=== PATIENT | male | born 1960 | race Hispanic/Latino ===

== ENCOUNTER 2017-09-27 07:41 | Observation (INO) | payer OTHER ==
[~2017-09-27] VITALS: Ht 175.3 cm; Wt 116.4 kg
[~2017-09-27 07:41] MED LIST: ASPIRIN81 M4 PO; ATORVASTATIN CA40 M1 PO; ATORVASTATIN CA80 M1 PO; BRILINTA90 M1 PO; FENOFIBRATE145 M1 PO; FLEXERIL10 MG PO; HEPARIN-1/25000 UNI1 IV; HUMALOG KW100 UNIT/1 SC; JANUMET 50-5001 EACH PO; LEVEMIR FL100 UNIT/1 SC; LISINOPRIL20 M1 PO; MECLIZINE HCL25 MG PO; MEDROL DOSEPAK1 PAC PO; METFORMIN1000 MG PO; METOPROLOL SUCC25 M1 PO; METOPROLOL TART25 M1 PO; MOTRIN 600 MG600 MG PO; NAPROXEN500 M1 PO; PERCOCET 325 MG1 TA2 PO
--- NOTE | 2017-09-27 08:19 | ED CARDIAC/CP/PALPITATIONS ---
History of Present Illness General Chief Complaint: Chest Pain Stated Complaint: CHEST PAIN Source: patient Exam Limitations: no limitations Vital Signs & Intake/Output Vital Signs & Intake/Output Vital Signs Date Time Temp Pulse Resp B/P B/P Pulse O2 O2 Flow FiO2 Mean Ox Delivery Rate 09/28 0939 79 110/82 09/28 0938 79 110/82 09/28 0633 98.2 79 19 110/82 95 09/27 2207 98.4 71 19 144/96 96 09/27 1920 98.5 68 15 154/90 96 09/27 1815 98.0 73 19 152/76 98 Room Air 09/27 1508 68 17 117/70 95 Room Air 09/27 1037 96.0 68 16 122/78 97 Room Air ED Intake and Output 09/28 0000 09/27 1200 Intake Total 440 0 Output Total 0 Balance 440 0 Intake, Oral 440 0 Output, Urine 0 Patient 257 lb 265 lb Weight Weight Reported by Patient Measurement Method Allergies Coded Allergies: NO KNOWN ALLERGIES (03/26/14) Reconcile Medications Aspirin (Aspirin*) 81 MG TAB.CHEW 1 TAB PO DAILY heart health (Reported) Atorvastatin Calcium 80 MG TABLET 1 TAB PO 1700 CHOLESTEROL (Reported) Fenofibrate Nanocrystallized (Fenofibrate) 145 MG TABLET 1 TAB PO DAILY CHOLESTEROL (Reported) Insulin Detemir (Levemir Flextouch) 100 UNIT/ML (3 ML) INSULN.PEN 43 UNITS SC QAM DM (Reported) Insulin Lispro (Humalog Kwikpen U-100) 100 UNIT/ML INSULN.PEN DM (Reported) Lisinopril 20 MG TABLET 1 TAB PO DAILY HTN (Reported) Metoprolol Succinate 25 MG TAB 1 TAB PO DAILY HEART (Reported) Ticagrelor (Brilinta) 90 MG TABLET 90 MG PO Q12H ACS Triage Note: PT TO ED FOR C/C OF INTERMITTENT SHARP CHEST PAINS THAT RADIATE INTO LEFT ARM WITH OCCASIONAL L ARM NUMBNESS X 2 DAYS. PT THINKS HE'S HAD A HEART ATTACK IN THE PAST BEFORE WITH CARDIAC CATH BUT IS UNSURE. UNSURE OF MEDICAL ILLUSTRATOR WELL, BUT REPORTS PART OF CLAIRE. ONLY SOB WHEN PAIN OCCURS. Triage Nurses Notes Reviewed? yes HPI: Patient presents for evaluation of chest pain that began abruptly about 3 days ago. Patient's describing an intermittent chest pain that occurs every few hours and lasts on the order of 10 minutes or so. He does refer associated left hand numbness and pain in the left shoulder. He states he occasionally gets diaphoretic and dyspneic but is unclear if this is associated with the chest pain episodes. He denies associated jaw pain. He has had a prior cardiac catheterization at [facility]. He is unable to tell me who his primary care physician is or his entry level manager. He is not sure about his cholesterol levels either. He does admit to mild cigarette smoking. Past History Travel History Traveled to [place] past 21 day No Medical History Any Pertinent Medical History? 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 No Review of Systems Review of Systems Constitutional: Reports: no symptoms. EENTM: Reports: no symptoms. Respiratory: Reports: no symptoms. Cardiovascular: Reports: see HPI. GI: Reports: no symptoms. Genitourinary: Reports: no symptoms. Musculoskeletal: Reports: no symptoms. Skin: Reports: no symptoms. Neurological/Psychological: Reports: no symptoms. Hematologic/Endocrine: Reports: no symptoms. Immunologic/Allergic: Reports: no symptoms. All Other Systems: Reviewed and Negative Physical Exam Physical Exam Cardiovascular: SEE BELOW Comments: Gen.: Well-nourished, well-developed, no acute respiratory distress. Head: Normocephalic, atraumatic. Eyes: Normal inspection bilaterally Ears: Normal inspection bilaterally Nose: Normal inspection Throat/mouth : Moist mucosa Neck: Supple, full range of motion, no goiter, no JVD Heart: Regular rate and rhythm, no murmurs rubs or gallops Lungs: Clear to auscultation bilaterally with normal air entry Chest: Nontender Back: Normal range of motion Abdomen: Soft, nontender, nondistended, normal bowel sounds Extremities: Normal range of motion grossly, equal radial pulses, no cyanosis clubbing or edema Neurologic: Cranial nerves grossly intact, speech is clear Skin: warm and dry Psychiatric: Calm, cooperative, no apparent delusions or hallucinations Core Measures ACS in differential dx? Yes CVA/TIA Diagnosis No Sepsis Present: No Sepsis Focused Exam Completed? No Progress Differential Diagnosis: AMI, musculoskeletal pain, pericarditis, pneumonia, pneumothorax, unstable angina Plan of Care: Orders Procedure Date/time Status CBC WITHOUT DIFFERENTIAL 09/28 599 Complete BASIC ELECTROLYTES PLUS BUN&CR 09/28 599 Complete Discharge Patient 09/28 UNK Active Heart Healthy Diet 09/27 D Active Weight 09/27 220 Active TROPONIN LEVEL 09/27 220 Complete EKG 09/27 2200 Active Vital Signs 09/27 192 Active Teach/Educate 09/28 1923 Active Pain Treatment and Response 09/28 1923 Active Nutritional Intake, Monitor 09/28 1923 Active Isolation 09/28 1923 Active Intake & Output 09/27 192 Active Patient Care Conference 09/28 1923 Active Activity/Ambulation 09/27 192 Active TROPONIN LEVEL 09/27 1600 Complete EKG 09/27 1600 Active Pathway - chart 09/27 1533 Active House Staff 09/27 1533 Active Patient Data 09/27 1533 Active Patient Data 09/[address] in observation 09/27 1201 Active Misc Message 09/27 1201 Active ED Holding Orders 09/27 1201 Active Vital Signs 09/27 1201 Active Code Status 09/27 1201 Active Intake & Output 09/27 0807 Active VTE Mechanical Prophylaxis 09/27 UNK Active Hemoccult 09/27 UNK Active FingerStick- Glucose 09/27 UNK Active CIWA 09/27 UNK Active Activity/Ambulation 09/27 UNK Active Current Medications Sig/Yazmin Start time Last Medication Dose Stop Time Status Admin Atorvastatin Calcium 80 MG 1700 09/27 1700 AC (Lipitor) Insulin Human Regular 0 TIDAC/HS 09/27 1700 AC 09/28 (NovoLIN R) 0936 Aspirin 81 MG DAILY 09/27 1534 AC 09/28 (Aspirin) 0938 Fenofibrate 145 MG DAILY 09/27 1534 AC 09/28 (Tricor) 0939 Lisinopril 20 MG DAILY 09/27 1534 AC 09/28 (Prinivil) 0938 Metoprolol Succinate 25 MG DAILY 09/27 1534 AC 09/28 (Toprol XL) 0939 Enoxaparin Sodium 40 MG DAILY 09/27 1533 AC 09/27 (Lovenox) 1607 Laboratory Tests 09/28/17 0616: Anion Gap 11, Estimated GFR > 60, BUN/Creatinine Ratio 14.0, CBC w Diff NO MAN DIFF REQ, RBC 5.19, MCV 87.0, MCH 28.5, MCHC 32.8 L, RDW 14.2, MPV 7.4, Gran % 49.4, Lymphocytes % 36.7, Monocytes % 10.1 H, Eosinophils % 3.3, Basophils % 0.5, Absolute Granulocytes 4.7, Absolute Lymphocytes 3.5 H, Absolute Monocytes 1.0 H, Absolute Eosinophils 0.3, Absolute Basophils 0 09/27/17 2200: Troponin I < 0.01 09/27/17 1630: Troponin I < 0.01 Diagnostic Imaging: Discussed w/RAD: Radiology Read. CXR Impression: PATIENT: TYRESE SHEA PRESENT AGE: 57 PATIENT ACCOUNT NO: [id number] : 56 LOCATION: [facility] ORDERING PHYSICIAN: Nahun Batista MD SERVICE DATE: 09/27/17 EXAM TYPE: RAD - XRY-CHEST XRAY, TWO VIEWS EXAMINATION: XR CHEST CLINICAL INFORMATION: Intermittent chest pain. COMPARISON: Chest done on 01/08/2016. TECHNIQUE: 2 views of the chest were obtained. FINDINGS: Both lung dias are symmetrically expanded and appear clear. The cardiomediastinal silhouette is within normal limit. There is no pleural effusion or pneumothorax present. The visualized upper abdomen is unremarkable. Mild multilevel degenerative spondylosis is seen in the spine. Overall, when compared to prior study dated 01/08/2016, there is no significant interval change present. IMPRESSION: No acute cardiopulmonary disease. DICTATED BY: Chau Thomas MD DATE/TIME DICTATED:09/27/17945 WORD PROCESSOR TECHNICIAN: KENYATTA DATE/TIME TRANSCRIBED:09/27/17945 CONFIDENTIAL, DO NOT COPY WITHOUT APPROPRIATE AUTHORIZATION. <Electronically signed in Other Vendor System> SIGNED BY: Chau Thomas MD 09/27/17 0951 Initial ED EKG: NSR, rate (70), RBBB, lafb Prior EKG: unchanged (rsr' in v2,v3-otherwise stable) Comments: 09/27/2017 10:39:25 AM patient's case discussed with Dr. Marks who reviewed the patient's old records. He had a drug-eluting stent placed in his LAD secondary to an 89% occlusion. At the time of the cardiac catheterization ( December 2015) there were no other significant lesions. However given the patient's risk factors an established history of coronary artery disease patient will be admitted for unstable angina. Given that the patient is pain-free currently and appears to be no need for anticoagulation at this time. Should the patient have a return of chest pain he would require anticoagulation. 09/27/2017 12:33:09 PM patient case discussed with Marily Rodas MD. Patient will be admitted to telemetry. Departure Departure Disposition: STILL A PATIENT Condition: Stable Clinical Impression Primary Impression: Unstable angina Referrals: Julissa Ferguson Departure Forms: Customer Survey General Discharge Information Observation Note Spoke With: Clark DALY,Marily Barcenas Place Patient In: Non-ED OBS Care Area Rationale for Observation: My rational for observation is as follows patient's clinical presentation is consistent with unstable angina. Patient has a known history of coronary artery disease and diabetes. He is at very high risk of myocardial infarction. I do not feel he is a good candidate for outpatient management given that he was unable to state who his entry level manager or primary care physician were. According to his entry level manager, Dr. Marks, he was seen only once in follow-up. I fear that this patient would not comply with outpatient treatment and could return in worse clinical condition. At this point I feel he requires continuous cardiac monitoring, serial EKGs and troponins and cardiology consultation for optimization of medical management and consideration of echocardiogram stress test and/or cardiac catheterization. Critical Care Note Critical Care Note Critical Care Time: non-applicable
[2017-09-27 09:01] LABS: ABSOLUTE BASOPHIL COUNT 0.1 /CUMM (0.0-0.2); ABSOLUTE EOSINOPHIL COUNT 0.3 /CUMM (0.0-0.7); ABSOLUTE GRANULOCYTE CT 6.8 /CUMM (1.4-6.5); ABSOLUTE LYMPH COUNT 2.4 /CUMM (1.2-3.4); ABSOLUTE MONOCYTE COUNT 0.8 /CUMM (0.10-0.60); BASOPHIL % 0.8 % (0.0-2.0); EOSINOPHIL % 2.5 % (0-5); GRANULOCYTE % 65.7 % (42.2-75.2); HEMATOCRIT 45.9 % (42-52); MEAN CORPUSCULAR HGB 28.6 PG (27.0-31.0); MEAN CORPUSCULAR HGB CONC 32.9 G/DL (33.0-37.0); MEAN CORPUSCULAR VOLUME 87.1 FL (80.0-94.0); MEAN PLATELET VOLUME 7.2 FL (7.4-10.4); PLATELET COUNT 282 /CUMM (130-400); RBC DISTRIBUTION WIDTH 13.9 % (11.5-14.5); RED BLOOD CELL CT 5.27 /CUMM (4.70-6.10); WHITE BLOOD CELL COUNT 10.3 /CUMM (4.8-10.8)
--- NOTE | 2017-09-27 09:56 | RADIOLOGY REPORT ---
EXAMINATION: XR CHEST CLINICAL INFORMATION: Intermittent chest pain. COMPARISON: Chest done on 01/08/2016. TECHNIQUE: 2 views of the chest were obtained. FINDINGS: Both lung dias are symmetrically expanded and appear clear. The cardiomediastinal silhouette is within normal limit. There is no pleural effusion or pneumothorax present. The visualized upper abdomen is unremarkable. Mild multilevel degenerative spondylosis is seen in the spine. Overall, when compared to prior study dated 01/08/2016, there is no significant interval change present. IMPRESSION: No acute cardiopulmonary disease.
--- NOTE | 2017-09-27 13:21 | Cons- Cardiology ---
General Information and HPI Consulting Request Date of Consult: 09/27/17 Requested By: Marily Rodas Reason for Consult: Chest pain, CAD History of Present Illness: The patient is a 57-year-old male with history of coronary artery disease status post drug-eluting stent placement to the LAD in 2016, type 2 diabetes mellitus, and hypertension who presents with complaint of chest discomfort. The chest discomfort has been intermittent over the past 3 days. He describes it as a sharp pain radiating from the substernal area to his left arm. Lasts for up to a few minutes per episode and occurs up to several times per day. He notes occasional shortness of breath associated with the pain. He also has occasional diaphoresis. No palpitations. No diaphoresis. No syncope. No lightheadedness or dizziness. No nausea or vomiting. He notes that the pain is improved with taking sips of water. Allergies/Medications Allergies: Coded Allergies: NO KNOWN ALLERGIES (03/26/14) Home Med List: Aspirin (Aspirin*) 81 MG TAB.CHEW 1 TAB PO DAILY heart health (Reported) Atorvastatin Calcium 80 MG TABLET 1 TAB PO 1700 CHOLESTEROL (Reported) Fenofibrate Nanocrystallized (Fenofibrate) 145 MG TABLET 1 TAB PO DAILY CHOLESTEROL (Reported) Insulin Detemir (Levemir Flextouch) 100 UNIT/ML (3 ML) INSULN.PEN 43 UNITS SC QAM DM (Reported) Insulin Lispro (Humalog Kwikpen U-100) 100 UNIT/ML INSULN.PEN DM (Reported) Lisinopril 20 MG TABLET 1 TAB PO DAILY HTN (Reported) Metoprolol Succinate 25 MG TAB 1 TAB PO DAILY HEART (Reported) Ticagrelor (Brilinta) 90 MG TABLET 90 MG PO Q12H ACS Current Medications: Current Medications Sig/Yazmin Start time Last Medication Dose Route Stop Time Status Admin Aspirin 0 .STK-MED ONE 09/27 1603 DC PO Aspirin 81 MG DAILY 09/27 1534 AC 09/27 PO 1607 Atorvastatin Calcium 80 MG 1700 09/27 1700 AC PO Enoxaparin Sodium 0 .STK-MED ONE 09/27 1603 DC SC Enoxaparin Sodium 40 MG DAILY 09/27 1533 AC 09/27 SC 1607 Fenofibrate 145 MG DAILY 09/27 1534 AC PO Insulin Human Regular 0 TIDAC/HS 09/27 1700 AC 09/27 SC 1622 Lisinopril 0 .STK-MED ONE 09/27 1603 DC PO Lisinopril 20 MG DAILY 09/27 1534 AC 09/27 PO 1607 Metoprolol Succinate 25 MG DAILY 09/27 1534 PO Nitroglycerin 0 .STK-MED ONE 09/27 0836 DC [facility] Nitroglycerin 0.5 GM ONCE ONE 09/27 0830 DC 09/27 TOP 09/27 08 0835 Review of Systems Review of Systems: No rash. No tremor. No fever. No chills. 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 spouse Services at Home: None Primary Language: Danish ETOH Use: occasional use Illicit Drug Use: denies illicit drug use Functional Ability ADLs Independent: dressing, eating, toileting, bathing. Ambulation: independent IADLs Independent: shopping, housework, finances, food prep, telephone, transportation , medication admin. Exam & Diagnostic Data Vital Signs and I&O Vital Signs Date Time Temp Pulse Resp B/P B/P Pulse O2 O2 Flow FiO2 Mean Ox Delivery Rate 09/27 1815 98.0 73 19 152/76 98 Room Air 09/27 1508 68 17 117/70 95 Room Air 09/27 1037 96.0 68 16 122/78 97 Room Air 09/27 0904 98.4 68 16 124/71 96 Room Air 09/27 0852 Room Air 09/27 0753 96.6 69 15 151/79 96 Room Air Room Air Intake & Output 09/27 1600 09/27 0800 09/27 0000 09/26 1600 09/26 0800 09/26 0000 Intake Total 0 Output Total 0 Balance 0 Intake, Oral 0 Output, Urine 0 Patient 265 lb Weight Weight Reported by Patient Measurement Method Physical Exam: Gen: The patient is in no acute distress HEENT: Normal nose, ears, and oropharynx. Pupils equal bilaterally. Conjunctiva normal. Neck: Supple with no JVD, no masses, and no thyromegaly Lungs: Clear to auscultation with normal respiratory effort Heart: RRR, S1, S2, no murmurs. No peripheral edema, 2+ pulses in the lower extremities bilaterally Abdomen: Soft, nontender, no masses. No hepatomegaly. No splenomegaly Extremities: No clubbing or cyanosis. Normal muscle strength in the upper and lower extremities. Skin: Normal skin turgor with no skin ulcers or lesions noted. Neuro: Cranial nerves intact. Sensation intact Psych: Alert and oriented 3 with appropriate affect Labs/Abdullahi Results: Laboratory Tests 09/27 09/27 1630 0845 Chemistry Sodium (137 - 145 mmol/L) 138 Potassium (3.5 - 5.1 mmol/L) 4.4 Chloride (98 - 107 mmol/L) 103 Carbon Dioxide (22 - 30 mmol/L) 23 Anion Gap (5 - 16) 12 BUN (9 - 20 mg/dL) 18 Creatinine (0.7 - 1.2 mg/dL) 0.9 Estimated GFR (>60 ml/min) > 60 BUN/Creatinine Ratio (7 - 25 %) 20.0 Glucose (65 - 99 mg/dL) 307 H Calcium (8.4 - 10.2 mg/dL) 9.4 Magnesium (1.6 - 2.3 mg/dL) 1.7 Troponin I (<0.11 ng/ml) < 0.01 < 0.01 Hematology CBC w Diff NO MAN DIFF REQ WBC (4.8 - 10.8 /CUMM) 10.3 RBC (4.70 - 6.10 /CUMM) 5.27 Hgb (14.0 - 18.0 G/DL) 15.1 Hct (42 - 52 %) 45.9 MCV (80.0 - 94.0 FL) 87.1 MCH (27.0 - 31.0 PG) 28.6 MCHC (33.0 - 37.0 G/DL) 32.9 L RDW (11.5 - 14.5 %) 13.9 Plt Count (130 - 400 /CUMM) 282 MPV (7.4 - 10.4 FL) 7.2 L Gran % (42.2 - 75.2 %) 65.7 Lymphocytes % (20.5 - 51.1 %) 23.2 Monocytes % (1.7 - 9.3 %) 7.8 Eosinophils % (0 - 5 %) 2.5 Basophils % (0.0 - 2.0 %) 0.8 Absolute Granulocytes (1.4 - 6.5 /CUMM) 6.8 H Absolute Lymphocytes (1.2 - 3.4 /CUMM) 2.4 Absolute Monocytes (0.10 - 0.60 /CUMM) 0.8 H Absolute Eosinophils (0.0 - 0.7 /CUMM) 0.3 Absolute Basophils (0.0 - 0.2 /CUMM) 0.1 Diagnostic Data EKG Results EKG tracing is independently reviewed, and reveals normal sinus rhythm at 70 with right bundle-branch block and left anterior fascicular block CXR Results negative Other Results Cardiac catheterization January 09, 2016: 1. Single vessel CAD/ Mid LAD has 80-90% tubular lesion and was the culprit for the NSTEMI. 2. Normal LV filling pressures (14 mm Hg) 3. Successful PCI of the mid LAD artery utilizing RAND with an excellent angiographic result. 4. Continue aggressive risk factor modification 5. Dual anti-platelet Rx with ASA 81 mg indefinitely and Brilinta 90 mg BID for minimum one year. Echocardiogram March 24, 2016: Normal left ventricular size, thickness, systolic function, and wall motion. LVEF calculated by biplane Reyez's is 67%. Mild diastolic dysfunction, consistent with relaxation abnormality.Thickened mitral valve. Trace mitral valve regurgitation.Trace tricuspid valve regurgitation. The right ventricular systolic pressure is normal.No prior study available for comparison. Assessment/Plan Assessment/Plan the patient is a 57-year-old male with history of CAD presenting with chest discomfort. The chest discomfort is somewhat atypical for ischemic heart disease, and EKG does not reveal any definite ischemic changes. The patient is now pain-free recommendations: * Monitor on telemetry * Check troponin levels x2 * Continue aspirin * Continue statin, lisinopril, and metoprolol * If the patient rules out for myocardial infarction and is clinically stable, then he will likely be ready for discharge tomorrow, and stress testing will be arranged as an outpatient. Consult Acknowledgment - Thank you for your consult request.
--- NOTE | 2017-09-27 13:23 | History & Physical ---
Tyler DALYCharmaine 09/27/17 1322: General Information and HPI MD Statement: I have seen and personally examined TYRESE SHEA and documented this H&P. The patient is a 57 year old M who presented with a patient stated chief complaint of CHEST PAIN AT REST Source of Information: patient, family Exam Limitations: no limitations History of Present Illness: This is a 57-year-old male with a past medical history significant for hypertension, myocardial infarction in 2016 with drug-eluting stent placed to the LAD secondary to 89% occlusion, diabetes on insulin that comes to see us for 2-3 days of intermittent sharp chest pain. The patient states that at worst the pain is 8/10 and extends down his left arm with associated left arm numbness and tingling. He also notes at the time some shortness of breath. The patient is not on any home oxygen and does not have any lung pathology although he is a current walker. The patient states the pain lasted about 2-3 minutes and comes on from 1 to about 5 times per day. He also notes associated diaphoresis occasionally. Patient's previous cardiac catheterization was at [facility] in 2016. The patient follows with Dr. Marks and has seen him a couple times, last appointment was about 6-7 months ago. The patient says that today he was on his way to work but stopped at the hospital because the symptoms he is getting reminded him of the symptoms he had preceding his previous heart attack. The patient denies any changing pain on breathing or moving, no pain on palpation of the area. He states that he thinks taking a few sips of water helps. The patient denies any changes in diet or activities, no travel, no sick contacts. 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 He lives with daughter and girlfriend. He smokes about 6 cigarettes a day for about 40 years. Every weekends he has about 10 shots of alcohol on both days. He states that he is not an alcoholic however, and answers no to all cage questions. The patient denies any drug use. The patient sees an unspecified PCP that works for [employer] on [facility]. At home he takes aspirin, atorvastatin 80 mg, fenofibrate, insulin, checks his blood sugar every day, last check showed a glucose of 240, lisinopril 20 mg, and metoprolol 25 mg, Brilinta 90 mg Allergies/Medications Allergies: Coded Allergies: NO KNOWN ALLERGIES (03/26/14) Home Med list Aspirin (Aspirin*) 81 MG TAB.CHEW 1 TAB PO DAILY heart health (Reported) Atorvastatin Calcium 80 MG TABLET 1 TAB PO 1700 CHOLESTEROL (Reported) Fenofibrate Nanocrystallized (Fenofibrate) 145 MG TABLET 1 TAB PO DAILY CHOLESTEROL (Reported) Insulin Detemir (Levemir Flextouch) 100 UNIT/ML (3 ML) INSULN.PEN 43 UNITS SC QAM DM (Reported) Insulin Lispro (Humalog Kwikpen U-100) 100 UNIT/ML INSULN.PEN DM (Reported) Lisinopril 20 MG TABLET 1 TAB PO DAILY HTN (Reported) Metoprolol Succinate 25 MG TAB 1 TAB PO DAILY HEART (Reported) Ticagrelor (Brilinta) 90 MG TABLET 90 MG PO Q12H ACS Compliance With Home Meds: GOOD Past History Travel History Traveled to [place] past 21 day No Medical History Neurological: NONE EENT: NONE Cardiovascular: hypertension, [place] Respiratory: NONE Gastrointestinal: NONE Hepatic: NONE Renal: NONE Musculoskeletal: NONE Psychiatric: NONE Endocrine: diabetes Blood Disorders: NONE Cancer(s): NONE 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 spouse Services at Home: None Primary Language: Marshallese Smoking Status: Current Everyday Smoker ETOH Use: heavy use Illicit Drug Use: denies illicit drug use Functional Ability ADLs Independent: dressing, eating, toileting, bathing. Ambulation: independent IADLs Independent: shopping, housework, finances, food prep, telephone, transportation , medication admin. Review of Systems Review of Systems Constitutional: Reports: diaphoresis. EENTM: Reports: no symptoms. Cardiovascular: Reports: chest pain. Respiratory: Reports: see HPI. Musculoskeletal: Reports: no symptoms. Neurological/Psychological: Reports: no symptoms. Exam & Diagnostic Data Last 24 Hrs of Vital Signs/I&O Vital Signs Date Time Temp Pulse Resp B/P B/P Pulse O2 O2 Flow FiO2 Mean Ox Delivery Rate 09/27 1508 68 17 117/70 95 Room Air 09/27 1037 96.0 68 16 122/78 97 Room Air 09/27 0904 98.4 68 16 124/71 96 Room Air 09/27 0852 Room Air 09/27 0753 96.6 69 15 151/79 96 Room Air Room Air Intake & Output 09/27 1600 09/27 0800 09/27 0000 Intake Total 0 Output Total 0 Balance 0 Intake, Oral 0 Output, Urine 0 Patient 265 lb Weight Weight Reported by Patient Measurement Method Physical Exam General Appearance Alert, Oriented X3, Cooperative, No Acute Distress Skin Temp/Moisture Exam: Warm/Dry Sepsis Skin Exam (color): Normal for Ethnicity Neck Supple, No JVD Cardiovascular Regular Rate, Normal S1, Normal S2, No Murmurs Lungs Clear to Auscultation, Normal Air Movement Abdomen Normal Bowel Sounds, Soft, No Tenderness Extremities No Clubbing, No Cyanosis, No Edema, Normal Pulses, No Tenderness/ Swelling Last 24 Hrs of Labs/Abdullahi: Laboratory Tests 09/27/17 0845: Anion Gap 12, Estimated GFR > 60, BUN/Creatinine Ratio 20.0, Glucose 307 H, Calcium 9.4, Magnesium 1.7, Troponin I < 0.01, CBC w Diff NO MAN DIFF REQ, RBC 5.27, MCV 87.1, MCH 28.6, MCHC 32.9 L, RDW 13.9, MPV 7.2 L, Gran % 65.7, Lymphocytes % 23.2, Monocytes % 7.8, Eosinophils % 2.5, Basophils % 0.8, Absolute Granulocytes 6.8 H, Absolute Lymphocytes 2.4, Absolute Monocytes 0.8 H, Absolute Eosinophils 0.3, Absolute Basophils 0.1 Assessment/Plan Assessment: This is a 57-year-old male with a past medical history significant for hypertension, myocardial infarction in 2016 with drug-eluting stent placed to the LAD secondary to 89% occlusion, diabetes on insulin that comes to see us for 2-3 days of intermittent sharp chest pain that is not affected by respiration, movement, palpation. He states that his symptoms remind him of his previous myocardial infarction. With this patient's risk factors of hypertension, diabetes, obesity, he is at high risk for a second myocardial infarction. The patient is on multiple cardiac medications to prevent further ACS. He sees Dr. Marks outpatient. His EKG in the ED shows new RSR prime in lead V2. Other than that the EKG is largely unchanged and shows normal sinus rhythm at a rate of 70 with evidence of right bundle branch block and left anterior fascicular block. His QTC is 445. Vital signs are stable with blood pressure 151/79, 96% oxygen saturation on room air. In the ED he is given 1 dose of Nitro-Bid. Chest x-ray is clear. Labs are noncontributory except for elevated glucose level of 307. Assessment -Unstable angina -Hypertension well controlled -Diabetes mellitus -Current smoker -Obesity Plan -Observe patient on telemetry for evaluation and treatment -Repeat EKG and troponins, so far negative. -Cardiology has been consulted and we are awaiting recommendations on continuing Brilinta. We have continued his other cardiac medications including aspirin, statin, beta-lenin, JAIR inhibitor. If patient does have an increase in troponins are repeat of his chest pain (he has had no chest pain since coming to the ED) we will start him on IV heparin and defer to cardiology for potential nuclear stress test/cardiac cath risk stratification. -Accu-Cheks with medium dose sliding scale insulin -Patient is saturating well on room air and for now we will hold off on any TRC nebs -Patient has been counseled on quitting smoking and is deferring nicotine patch placement. -Patient will be counseled on weight loss, consider nutritional consult. -We will see why patient as he notes that he drinks 10 shots a day on the weekends and consider Ativan per CIWA/standing dose if patient is scoring. Patient is full code Heart healthy diet DVT prophylaxis with Lovenox and Alps As Ranked By This Provider Problem List: 1. Unstable angina Core Measures/Misc (11/14) Acute Coronary Syndrome ACS Diagnosis: No Congestive Heart Failure Congestive Heart Failure Diagnosis No Cerebrovascular Accident CVA/TIA Diagnosis: No VTE (View Protocol) VTE Risk Factors Smoker No Mechanical VTE Prophylaxis d/t N/A MechProphylax Ordered No VTE Pharm Prophylaxis d/t NA PharmProphylax ordered Sepsis (View protocol) Sepsis Present: No If YES complete Sepsis Event Note If YES complete Sepsis Event Note Marily Rodas MD 09/27/17 1419: Core Measures/Misc (11/14) Sepsis (View protocol) If YES complete Sepsis Event Note If YES complete Sepsis Event Note Attending Review Statement Attending Statement Attending MD Statement: examined this patient, discuss w/resident/PA/PRODUCT RESPONSIBILITY LIAISON, agreed w/resident/PA/PRODUCT RESPONSIBILITY LIAISON, reviewed EMR data (avail), discussed with nursing, discussed with case mgmt, reviewed images Attending Assessment/Plan: 57-year-old male past medical history of diabetes, hypertension, previous coronary artery disease with stent in LAD in 2016. His outpatient compliance with MD office visits is unreliable but it does appear that he has been taking his medications. He is here with symptoms of chest pain and arm numbness that occurred at rest. Right now he is asymptomatic. We will continue his aspirin and statin, beta-lenin and JAIR inhibitor. Will clarify with Dr. Marks whether we need to continue the Brilinta. If his troponins are positive or his chest pain worsens we will start him on IV heparin. And will also speak to cardiology about questionable nuclear stress test in a.m. versus risk stratification with cardiac cath.
[2017-09-27 19:20] VITALS: BP 154/90
[2017-09-27 22:07] VITALS: BP 144/96
[2017-09-28 06:33] VITALS: BP 110/82
--- NOTE | 2017-09-28 07:44 | PN- Housestaff ---
Tyler DALY,Charmaine 09/28/17 0744: Subjective Follow-up For: Chest pain rule out ACS Subjective: Patient was seen and examined. He denies any pain in his chest and tingling in his arms or hands today. No shortness of breath. His vitals are stable overnight except for 1 slightly higher blood pressure 152/76. The patient had repeat troponins overnight which were all negative. Of note, patient's cardiac surgeon was found to be switched with another patient accidentally during the night. Patient was to be discharged this morning but drafting technician during the day shift noticed the switch and alerted staff including attending, analytics consultant, house staff. Overnight Mr. Yuan was found to have bradycardia while he was fast asleep of 28. Patient has never had a sleep study or workup for obstructive sleep apnea. The accidental switch was disclosed to patient and retail salesman, Dr. Feldman, still did recommend discharge with close follow-up with Dr. Marks. Review of Systems Constitutional: Reports: no symptoms. Cardiovascular: Reports: no symptoms. Respiratory: Reports: no symptoms. Gastrointestinal: Reports: no symptoms. Musculoskeletal: Reports: no symptoms. Skin: Reports: no symptoms. Neurological/Psychological: Reports: no symptoms. Objective Last 24 Hrs of Vital Signs/I&O Vital Signs Date Time Temp Pulse Resp B/P B/P Pulse O2 O2 Flow FiO2 Mean Ox Delivery Rate 09/28 0939 79 110/82 09/28 0938 79 110/82 09/28 0633 98.2 79 19 110/82 95 09/27 2207 98.4 71 19 144/96 96 09/27 1920 98.5 68 15 154/90 96 09/27 1815 98.0 73 19 152/76 98 Room Air 09/27 1508 68 17 117/70 95 Room Air Intake & Output 09/28 1600 09/28 0800 09/28 0000 Intake Total 300 220 440 Output Total Balance 300 220 440 Intake, Oral 300 220 440 Patient 257 lb Weight Physical Exam General Appearance: Alert, Oriented X3, Cooperative, No Acute Distress Skin: No Rashes Sepsis Skin Exam (color): Normal for Ethnicity Cardiovascular: Regular Rate, Normal S1, Normal S2, No Murmurs Lungs: Clear to Auscultation, Normal Air Movement Abdomen: Normal Bowel Sounds, Soft, No Tenderness Extremities: No Clubbing, No Cyanosis, No Edema Current Medications: Current Medications Sig/Yazmin Start time Last Medication Dose Route Stop Time Status Admin Aspirin 0 .STK-MED ONE 09/27 1603 DC PO Aspirin 81 MG DAILY 09/27 1534 DCD 09/28 PO 0938 Atorvastatin Calcium 80 MG 1700 09/27 1700 DCD PO Enoxaparin Sodium 0 .STK-MED ONE 09/27 1603 DC SC Enoxaparin Sodium 40 MG DAILY 09/27 1533 DCD 09/27 SC 1607 Fenofibrate 145 MG DAILY 09/27 1534 DCD 09/28 PO 0939 Insulin Human Regular 0 TIDAC/HS 09/27 1700 DCD 09/28 SC 0936 Lisinopril 0 .STK-MED ONE 09/27 1603 DC PO Lisinopril 20 MG DAILY 09/27 1534 DCD 09/28 PO 0938 Metoprolol Succinate 25 MG DAILY 09/27 1534 DCD 09/28 PO 0939 Last 24 Hrs of Lab/Abdullahi Results Last 24 Hrs of Labs/Mics: Laboratory Tests 09/28/17 0616: Anion Gap 11, Estimated GFR > 60, BUN/Creatinine Ratio 14.0, CBC w Diff NO MAN DIFF REQ, RBC 5.19, MCV 87.0, MCH 28.5, MCHC 32.8 L, RDW 14.2, MPV 7.4, Gran % 49.4, Lymphocytes % 36.7, Monocytes % 10.1 H, Eosinophils % 3.3, Basophils % 0.5, Absolute Granulocytes 4.7, Absolute Lymphocytes 3.5 H, Absolute Monocytes 1.0 H, Absolute Eosinophils 0.3, Absolute Basophils 0 09/27/17 2200: Troponin I < 0.01 09/27/17 1630: Troponin I < 0.01 Assessment/Plan Assessment: This is a 57-year-old male with a past medical history significant for hypertension, myocardial infarction in 2016 with drug-eluting stent placed to the LAD secondary to 89% occlusion, diabetes on insulin that comes to see us for 2-3 days of intermittent sharp chest pain that is not affected by respiration, movement, palpation. He states that his symptoms remind him of his previous myocardial infarction. With this patient's risk factors of hypertension, diabetes, obesity, he is at high risk for a second myocardial infarction. The patient is on multiple cardiac medications to prevent further ACS. He sees Dr. Marks outpatient. His EKG in the ED shows new RSR prime in lead V2. Other than that the EKG is largely unchanged and shows normal sinus rhythm at a rate of 70 with evidence of right bundle branch block and left anterior fascicular block. His QTC is 445. Vital signs are stable with blood pressure 151/79, 96% oxygen saturation on room air. In the ED he is given 1 dose of Nitro-Bid. Chest x-ray is clear. Labs are noncontributory except for elevated glucose level of 307. Assessment -Unstable angina -Hypertension well controlled -Diabetes mellitus -Current smoker -Obesity Plan -Observe patient on telemetry for evaluation and treatment -Repeat EKG and troponins were negative -Cardiology has been consulted and is suggesting to continue all current medications including Brilinta. We have continued his other cardiac medications including aspirin, statin, beta-lenin, JAIR inhibitor as well. Patient is to follow-up with Dr. Marks for stress test as well as referral for sleep study for OUMAR as patient did have bradycardic episode while he was sleeping last night. -Accu-Cheks with medium dose sliding scale insulin and Levemir will be continued -Patient is saturating well on room air and for now we will hold off on any TRC nebs -Patient has been counseled on quitting smoking and is deferring nicotine patch placement. -CIWA is 0 for this patient, he notes that he drinks 10 shots a day on the weekends. Patient is full code Heart healthy diet DVT prophylaxis with Lovenox and Alps Problem List: 1. Unstable angina Pain Ratin Pain Location: NA Pain Goal: Remain pain free Pain Plan: NA Tomorrow's Labs & Rationales: Marily De La Cruz MD 09/28/17 1032: Attending MD Review Statement Attending Statement Attending MD Statement: examined this patient, discuss w/resident/PA/EXPLOSIVE ORDNANCE DISPOSAL MANAGER, agreed w/resident/PA/EXPLOSIVE ORDNANCE DISPOSAL MANAGER, reviewed EMR data (avail), discussed with nursing, discussed with case mgmt, reviewed images Attending Assessment/Plan: Patient feels completely well. He is eager to go home. He has had no symptoms overnight and has ruled out with serial enzymes and EKG. Of note his heart rate did dip down to the 40s overnight but he was completely asleep and asymptomatic. I discussed with Dr. Feldman who is covering for Dr. Marks. Patient will have outpatient follow-up and is going to schedule an appointment with Dr. Marks for an outpatient stress test. He has underlying diabetes with coronary artery disease and is going to continue his beta lenin, JAIR inhibitor , aspirin, brillianta and his insulin.
--- NOTE | 2017-09-28 07:49 | Patient Discharge Instructions ---
Discharge Instructions General Discharge Information You were seen/treated for: chest pain/unstable angina Special Instructions: 1. please follow up with pcp in one week 2. please follow up with cardiology for stress test in one week Diet Continue normal diet: Yes Activity Full Activity/No Limits: Yes Acute Coronary Syndrome Inclusion Criteria At DC or during hospital stay patient has or had the following: ACS DIAGNOSIS No Discharge Core Measures Meds if any: Prescribed or Continued at Discharge Meds if any: NOT Prescribed or Continued at Discharge Congestive Heart Failure Inclusion Criteria At DC or during hospital stay patient has or had the following: CHF DIAGNOSIS No Discharge Core Measures Meds if any: Prescribed or Continued at Discharge Meds if any: NOT Prescribed or Continued at Discharge Cerebrovascular accident Inclusion Criteria At DC or during hospital stay patient has or had the following: CVA/TIA Diagnosis No Discharge Core Measures Meds if any: Prescribed or Continued at Discharge Meds if any: NOT Prescribed or Continued at Discharge Venous thromboembolism Inclusion Criteria VTE Diagnosis No VTE Type NONE VTE Confirmed by (Test) NONE Discharge Core Measures - Per Current guidelines, there needs to be overlap - treatment for the first 5 days of Warfarin therapy. - If discharged on Warfarin prior to 5 days of - overlap therapy, the patient will need to be - assessed for post discharge needs including - *Post discharge parental anticoagulation - *Warfarin and/or parental anticoagulation education - *Follow up date to check INR post discharge At least 5 days overlap therapy as Inpatient No Meds if any: Prescribed or Continued at Discharge Note: Overlap Therapy is Warfarin and Anticoagulant Meds if any: NOT Prescribed or Continued at Discharge
[2017-09-28 08:00] LABS: ABSOLUTE BASOPHIL COUNT 0 /CUMM (0.0-0.2); ABSOLUTE EOSINOPHIL COUNT 0.3 /CUMM (0.0-0.7); ABSOLUTE GRANULOCYTE CT 4.7 /CUMM (1.4-6.5); ABSOLUTE LYMPH COUNT 3.5 /CUMM (1.2-3.4); BASOPHIL % 0.5 % (0.0-2.0); EOSINOPHIL % 3.3 % (0-5); GRANULOCYTE % 49.4 % (42.2-75.2); HEMATOCRIT 45.1 % (42-52); MEAN CORPUSCULAR HGB 28.5 PG (27.0-31.0); MEAN CORPUSCULAR HGB CONC 32.8 G/DL (33.0-37.0); MEAN PLATELET VOLUME 7.4 FL (7.4-10.4); PLATELET COUNT 277 /CUMM (130-400); RBC DISTRIBUTION WIDTH 14.2 % (11.5-14.5); RED BLOOD CELL CT 5.19 /CUMM (4.70-6.10); WHITE BLOOD CELL COUNT 9.5 /CUMM (4.8-10.8)
[2017-09-28 09:39] VITALS: BP 110/82
--- NOTE | 2017-09-28 09:59 | PN- Cardiology ---
Objective Vital Signs and I&Os Vital Signs Date Time Temp Pulse Resp B/P B/P Pulse O2 O2 Flow FiO2 Mean Ox Delivery Rate 09/28 938 79 110/82 09/28 0938 79 110/82 09/28 0633 98.2 79 19 110/82 95 09/27 2207 98.4 71 19 144/96 96 09/27 1920 98.5 68 15 154/90 96 09/27 1815 98.0 73 19 152/76 98 Room Air 09/27 1508 68 17 117/70 95 Room Air 09/27 1037 96.0 68 16 122/78 97 Room Air Intake & Output 09/28 1600 09/28 0800 09/28 0000 09/27 1600 09/27 0800 09/27 0000 Intake Total 220 440 0 Output Total 0 Balance 220 440 0 Intake, Oral 220 440 0 Output, Urine 0 Patient 257 lb 265 lb Weight Weight Reported by Patient Measurement Method Current Medications: Current Medications Sig/Yazmin Start time Last Medication Dose Route Stop Time Status Admin Aspirin 0 .STK-MED ONE 09/27 1603 DC PO Aspirin 81 MG DAILY 09/27 1534 09/28 PO 0938 Atorvastatin Calcium 80 MG 1700 09/27 1700 AC PO Enoxaparin Sodium 0 .STK-MED ONE 09/27 1603 DC SC Enoxaparin Sodium 40 MG DAILY 09/27 1533 09/27 NC 1607 Fenofibrate 145 MG DAILY 09/27 1534 AC 09/28 PO 0939 Insulin Human Regular 0 TIDAC/HS 09/27 1700 AC 09/28 SC 0936 Lisinopril 0 .STK-MED ONE 09/27 1603 DC PO Lisinopril 20 MG DAILY 09/27 1534 09/28 PO 0938 Metoprolol Succinate 25 MG DAILY 09/27 1534 AC 09/28 PO 0939 Results Last 48 Hrs of Labs/Mics: Laboratory Tests 09/28/17 0616: Anion Gap 11, Estimated GFR > 60, BUN/Creatinine Ratio 14.0, CBC w Diff NO MAN DIFF REQ, RBC 5.19, MCV 87.0, MCH 28.5, MCHC 32.8 L, RDW 14.2, MPV 7.4, Gran % 49.4, Lymphocytes % 36.7, Monocytes % 10.1 H, Eosinophils % 3.3, Basophils % 0.5, Absolute Granulocytes 4.7, Absolute Lymphocytes 3.5 H, Absolute Monocytes 1.0 H, Absolute Eosinophils 0.3, Absolute Basophils 0 09/27/17 2200: Troponin I < 0.01 09/27/17 1630: Troponin I < 0.01 09/27/17 0845: Anion Gap 12, Estimated GFR > 60, BUN/Creatinine Ratio 20.0, Glucose 307 H, Calcium 9.4, Magnesium 1.7, Troponin I < 0.01, CBC w Diff NO MAN DIFF REQ, RBC 5.27, MCV 87.1, MCH 28.6, MCHC 32.9 L, RDW 13.9, MPV 7.2 L, Gran % 65.7, Lymphocytes % 23.2, Monocytes % 7.8, Eosinophils % 2.5, Basophils % 0.8, Absolute Granulocytes 6.8 H, Absolute Lymphocytes 2.4, Absolute Monocytes 0.8 H, Absolute Eosinophils 0.3, Absolute Basophils 0.1 Assessment/Plan Assessment/Plan Assessment: 1. Chest pain syndrome 2. CAD; LAD stent 2015 3. DM 4. HTN Recommendations: -DOing well with no evidence of ongoing symptoms or active ischemia. -Stable for discharge -Continue current medications -Followup with Dr. Marks as outpatient for further evaluation as necessary.
== END 2017-09-28 11:00 ==
LOC: ERH 07:41 → 1NO 12:01 → ERHI 12:01 → ENRESERV 17:58 → ENTRNSPT 18:34 → EDTRNSPT 18:37 → EDTRNSPTSTS 18:37 → EDTRNSPT 19:05 → CMPTRNSPT 19:10 → 1NO 19:15 → ENPENDDIS 09-28 09:52 → 1NO 09-28 11:00
PROVIDERS: Emergency Medicine; Student in an Organized Health Care Education/Training Program
DX: I20.0 Unstable angina (principal); I10 Essential (primary) hypertension; F17.200 Nicotine dependence, unspecified, uncomplicated; Z95.5 Presence of coronary angioplasty implant and graft; I25.2 Old myocardial infarction; E11.9 Type 2 diabetes mellitus without complications; Z79.4 Long term (current) use of insulin; E66.9 Obesity, unspecified; Z79.82 Long term (current) use of aspirin
CPT/HCPCS: 6020; 36592; 71046; 82436; 93005; 93010; G0378; J1650; J1815; J3490